=== PATIENT | female | born 1965 | race Caucasian/White ===

== ENCOUNTER 2020-12-23 07:27 | Day surgery (SDC) | payer OTHER ==
[~2020-12-23 07:27] MED LIST: BUFFERED LIDOCAINE 10 ML SYRINGE ONE
[2020-12-23] MEDS ORDERED: ceFAZolin 2 GM/50 ML 2 GM/50 ML BAG IV ONE (07:32)
[2020-12-23] MEDS ORDERED: LACTATED RINGERS 1,000 ML IV ONE ×2 (08:17→13:21)
[2020-12-23 08:19] LABS: HCG UR QUAL NEGATIVE
--- NOTE | 2020-12-23 09:20 | ANESTHESIA ---
Pre-Anesthesia VS, & Labs - Diagnosis R breast CA - Procedure R breast lumpectomy, sentinel node biopsy Vital Signs: Temp Pulse Resp BP Pulse Ox 36.5 C 95 16 148/88 H 97 12/23/20 07:55 12/23/20 07:55 12/23/20 07:55 12/23/20 07:55 12/23/20 07:55 Height: 5 ft 6 in Weight (kg): 76 kg Body Mass Index: 27.0 BMI Classification: Overweight - Is Patient ?: No - Lab Results Lab results reviewed: Yes Home Medications and Allergies Home Medications: Ambulatory Orders No Known Home Medications 12/17/20 No Known Home Medications 12/17/20 Allergies/Adverse Reactions: Allergies Allergy/AdvReac Type Severity Reaction Status Date / Time Sulfa (Sulfonamide AdvReac Unknown Verified 12/17/20 14:49 Antibiotics) Anes History & Medical History - Anesthetic History Anesthesia Complications: reports: No previous complications Family history of Anesthesia Complications: Denies Family history of Malignant Hyperthermia: Denies - Medical History Cardiovascular: reports: High cholesterol Pulmonary: reports: None Gastrointestinal: reports: GERD Urinary: reports: None Musculoskeletal: reports: None Endocrine/Autoimmune: reports: None Skin: reports: None History of Cancer?: Yes (R breast) - Surgical History General: reports: Other Exam General: Alert, Oriented x3, Cooperative Dental: WNL Mouth Openin Fingerbreadth Neck Mobility: Normal Mallampati classification: II Thyromental Distance: less than 4 cm Respiratory: Lungs clear, Normal breath sounds, No respiratory distress, No accessory muscle use Cardiovascular: Regular rate Neurological: Normal speech Mental/Cognitive Status: Alert/Oriented X3, Normal for patient Cognitive Status: Within normal limits Plan Anesthesia Type: General Consent for Procedure(s) Verified and Reviewed: Yes Code Status: Attempt Resuscitation ASA classification: 3-Severe systemic disease Is this case an emergency?: No
[2020-12-23] MEDS ORDERED: PROPOFOL 200 MG/20 ML VIAL IVP ONE (09:22)
[2020-12-23] MEDS ORDERED: ONDANSETRON 4 MG/2 ML VIAL ONE (09:22)
[2020-12-23] MEDS ORDERED: KETOROLAC 30 MG/ML VIAL ONE (09:22)
[2020-12-23] MEDS ORDERED: LIDOCAINE-MPF 2% 5 ML VIAL ONE (09:22)
[2020-12-23] MEDS ORDERED: DEXAMETHASONE 4 MG/ML VIAL ONE (09:22)
[2020-12-23] MEDS ORDERED: METOCLOPRAMIDE 10 MG/2 ML VIAL IVP PRN (10:52)
[2020-12-23] MEDS ORDERED: fentaNYL 100 MCG/2 ML VIAL IVP PRN (10:52)
[2020-12-23] MEDS ORDERED: HYDROmorphone 0.5 MG/0.5 ML SYRINGE IVP PRN (10:52)
[2020-12-23] MEDS ORDERED: ONDANSETRON 4 MG/2 ML VIAL IVP PRN ×2 (10:52→13:18)
[2020-12-23] MEDS ORDERED: ePHEDrine 50 MG/ML VIAL IVP PRN (10:52)
[2020-12-23] MEDS ORDERED: ATROPINE ABBOJECT 1 MG/10 ML SYRINGE IVP PRN (10:52)
[2020-12-23] MEDS ORDERED: NALOXONE 0.4 MG/ML VIAL IVP PRN (10:52)
[2020-12-23] MEDS ORDERED: MORPHINE 2 MG/ML CARPUJECT IVP PRN (10:52)
[2020-12-23] MEDS ORDERED: LACTATED RINGERS 1,000 ML IV SCH (11:00)
[2020-12-23] MEDS ORDERED: MIDAZOLAM 2 MG/2 ML VIAL ONE (11:11)
--- NOTE | 2020-12-23 11:17 | Nuclear Medicine Report ---
PROCEDURE: Lymph Node Scintigraphy INDICATIONS: RIGHT BREAST CA RADIOPHARMACEUTICAL: 0.5-1.0 mCi Millipore filtered Tc-99m sulfur colloid. TECHNIQUE: The area around the nipple was prepped and draped in a sterile fashion. Tc-99m sulfur colloid was in jected intra-dermally in the outer edge of the areola in the right breast. Images were obtained subs equently. A body contour outline was obtained with surface marker placed over the lowest lymph node and a chain of 3 known sequentially appearing from lower to higher at the right axilla.. FINDINGS: There is/are 3 lymph node(s) in the ipsilateral axilla, the lowest of which is marked on the skin and the images for referring physician. IMPRESSION: Administration of radiotracer into the right breast periareolar region for intra-operati ve sentinel lymph node localization, identifying the 3 sequential positive sentinel lymph nodes, the lowest of which was marked professionally on the skin surface.. Reviewed by: John Brothers MD on 12/23/2020 11:16 AM PDT Approved by: John Brothers MD on 12/23/2020 11:16 AM PDT Station ID: [id number]
[2020-12-23] MEDS ORDERED: BUPIVACAINE 0.5% PF 30 ML VIAL SUBQ ONE ×2 (12:05)
[2020-12-23] MEDS ORDERED: LIDOCAINE 1%-EPI 1:100000 30 ML MDV SUBQ ONE (12:05)
[2020-12-23] MEDS ORDERED: GLYCOPYRROLATE 1 MG/5 ML VIAL ONE (12:22)
[2020-12-23] MEDS ORDERED: BUFFERED LIDOCAINE 10 ML SYRINGE IU ONE (13:07)
--- NOTE | 2020-12-23 13:16 | OPERATIVE REPORT ---
Operative Report - General Procedure Date: 12/23/20 Planned Procedure: Right breast lumpectomy and sentinel node biopsy Pre-Op Diagnosis: Biopsy-proven right breast cancer Procedure Performed: Right breast lumpectomy and sentinel node biopsy following needle localization and mapping Post Op Diagnosis: Biopsy-proven right breast cancer - Procedure Note Primary Surgeon: Brittny Anesthesia Provider: MATHIEU Adams Anesthesia Technique: General LMA, Local Pathology: 1. [place] node #1 to pathology 2. [place] node #2 to pathology 3. Additional axillary tissue 4. [place] node #3 to pathology 5. Right breast mass marked with a short stitch superior long stitch lateral and double stitch anterior 6. Right breast additional anterior and superior margin marked with a short stitch superior, long stitch lateral, and double stitch anterior Estimated Blood Loss (mL): 50 Indications: Biopsy-proven right breast cancer Findings: Target lesion and marker well centered within the specimen Complications: None apparent - Other Other Information/Narrative: After obtaining informed consent, the patient was brought to the operating room and placed in the supine position on the operating table. Following successful induction of general endotracheal anesthesia, appropriate padding of all bony prominences, and placement of appropriate monitors, the right breast was prepped and draped in the standard surgical fashion. A timeout was held per scope protocol. All elements of the surgical safety checklist were followed before, during, and after the procedure. We began the procedure with a sentinel node dissection. The site of the brightest node had been marked in radiology with 2 skin marker axis. The neoprobe was used to identify the site of greatest uptake at level 2 in the patient's axilla. An incision was created over this area of uptake and carried through the skin and subcutaneous tissue to enter the axillary node packet. The first sentinel node was identified. It was noted to be slightly enlarged but otherwise grossly normal in appearance. It was carefully dissected free from surrounding stop structures sharply, all lymphatics and vasculature were addressed with clips prior to division. The node was liberated into the field. 10-second counts are recorded. Survey of the axilla revealed a second target immediately posterior to the first. This node was quite small and normal in appearance. It was carefully dissected free from surrounding stop structures sharply, all lymphatics and vasculature were addressed with clips prior to division. The node was liberated into the field. 10-second counts are recorded. A third sentinel node was identified superior to the second. 10- second counts were recorded. All afferrent and efferent lymphatics and vasculature were addressed prior to division. The node was liberated into the field and passed from the table. 10-second counts were recorded. Background in the axilla was checked and found to be 6-14. Background in the room was 0. The axillary incision was then closed in 2 layers with Vicryl and Monocryl sutures. We turned our attention to the right breast mass. The area over the mass and in the periareolar region was infiltrated with a mixture of local anesthetics to create to field block. A periareolar incision was then created and the mass and associated wire carefully dissected sharply from the subcutaneous tissue anteriorly and from the retromammary bursa posteriorly. The mass was removed in a single piece in a medial to lateral fashion. It was marked with a short stitch superior, long stitch lateral, and double stitch anterior. It was finally liberated sharply and delivered into the field. The wound was checked for hemostasis. It was irrigated again with warm water. The specimen xray was examined and found to contain the target clip and lesion well centered. The wound was then closed in 2 layers with Vicryl and Monocryl sutures. All sponge, needle, and instrument counts were correct at the conclusion of the case. The patient was let awakened anesthesia without difficulty and taken to the postanesthesia care unit in good condition.
[2020-12-23] MEDS ORDERED: IBUPROFEN 600 MG TABLET PO PRN (13:18)
[2020-12-23] MEDS ORDERED: oxyCODONE 5 MG TABLET PO PRN (13:18)
[2020-12-23] MEDS ORDERED: ACETAMINOPHEN 325 MG TABLET PO PRN (13:18)
[2020-12-23 14:08] VITALS: BP 133/82
--- NOTE | 2020-12-23 17:30 | ANESTHESIA POST OP EVALUATION ---
Anesthesia Post Eval - Post Anesthesia Eval Vitals: Last Vital Signs Temp 36.6 C 12/23/20 14:07 Pulse 75 12/23/20 14:07 Resp 14 12/23/20 14:07 BP 133/82 H 12/23/20 14:07 Pulse Ox 100 12/23/20 14:07 CV Function Including HR & BP: Stable Pain Control: Satisfactory Nausea & Vomiting: Negative Mental Status: Baseline Respiratory Status: Airway Patent Hydration Status: Satisfactory Anesthesia Complications: None
--- NOTE | 2020-12-24 08:05 | Ultrasound Report ---
ULTRASOUND GUIDED WIRE LOCALIZATION RIGHT BREAST WITH POST MAMMOGRAPHIC IMAGIN12/23/2020 CLINICAL: Right breast mass. Wire placement for right breast lumpectomy. Correlation is made to exams dated: 11/12/2020 breast MRI, 10/11/2020 ultrasound biopsy, 10/11/2020 susu mogram, 09/17/2020 ultrasound, 09/17/2020 mammogram, and 11/10/2017 [facility]. A wire localization using ultrasound guidance was performed for the concerning 2.2 cm x 2.1 cm x 1.6 cm circumscribed oval solid mass located in the right breast at 12 o'clock anterior depth. This was described on the previous mammography and ultrasound reports. The skin was prepped in the usual [facility]. Local anesthetic was administered to the access site. The localization was approached from the lateral aspect. A J-hook wire was inserted into the targeted area through an introducer device under ultrasound guidance. A sterile dressing was applied to the access site. Post placement mammographi c imaging demonstrates the tip rests in the targeted area. IMPRESSION: WIRE LOCALIZATION Wire localization for the 2.2 cm x 2.1 cm x 1.6 cm solid mass in the right breast at 12 o'clock anter ior depth was successful. A specimen radiograph is recommended. This exam was interpreted at Station ID: [id number]. John Brothers M.D. [facility]/:12/23/2020 10:08:48 BI-RADS CATEGORY: () - Unspecified - other recall n/a LATERALITY: (B)
--- NOTE | 2020-12-24 08:05 | Mammography Report ---
SPECIMEN RIGHT BREAST: 12/23/2020 CLINICAL: Right breast specimen. Correlation is made to exams dated: 12/23/2020 mammogram, 12/23/2020 localization - [facility], 11/12/2020 breast MRI, 10/11/2020 ultrasound biopsy, 10/11/2020 mammogram, and 09/17/2020 [facility]. A specimen was imaged for the solid mass located in the right breast at 12 o'clock anterior depth. IMPRESSION: SPECIMEN The imaged specimen includes the lesion, a biopsy clip, and a location device. This exam was interpreted at Station ID: [id number]. John Brothers M.D. [facility]/:12/23/2020 17:01:06 BI-RADS CATEGORY: () - Unspecified - other recall n/a LATERALITY: (B)
--- NOTE | 2020-12-24 08:05 | Mammography Report ---
UNILATERAL RIGHT DIGITAL DIAGNOSTIC MAMMOGRAM 3D/2D: 12/23/2020 CLINICAL: Post wire placement. Comparison is made to exams dated: 11/12/2020 breast MRI, 10/11/2020 ultrasound biopsy, 10/11/2020 mamm ogram, 09/17/2020 ultrasound, 09/17/2020 mammogram, and 11/10/2017 ultrasound - [facility]. The ti ssue of right breast is heterogeneously dense. This may lower the sensitivity of mammography. There is a mass in the right breast at 12 o'clock anterior depth. This is not significantly changed and correlates with prior ultrasound findings. There is a biopsy clip associated with the mass. No other significant masses or calcifications are seen in the breast. The wire localization performed earlier today has tip of the wire within 1 cm of the Vision marker placed previously. IMPRESSION: The mass in the right breast is a known biopsy positive for malignancy. The wire localization bring s the wire tip within 1cm of the biopsy localization Vision marker on both views. This exam was interpreted at Station ID: [id number]. NOTE: For mammograms, a report in lay terms will be sent to the patient. Approximately 15% of breast malignancies will not be visualized mammographically. In the management of a palpable breast mass, a negative mammogram must not discourage biopsy of a clinically suspicious lesion. Electronically Signed By: John Brothers M.D. [facility]/:12/23/2020 12:06:17 ACR BI-RADS Category n/a PARENCHYMAL PATTERN: (D) - The breast(s) demonstrate(s) heterogeneously dense fibroglandular parenchy ma. BI-RADS CATEGORY: () - Unspecified - other recall n/a LATERALITY: (B)
== END 2020-12-23 07:28 | disposition home or self-care (01) ==
LOC: DI 07:27
PROVIDERS: ATTEND Surgery
PROC: 07B50ZX Excision of Right Axillary Lymphatic, Open Approach, Diagnostic (ICD-10-PCS; 2020-12-23)
PROC: 0HBT0ZZ Excision of Right Breast, Open Approach (ICD-10-PCS; principal; 2020-12-23 10:00)
DX: C50.811 Malignant neoplasm of overlapping sites of right female breast (principal); Z17.0 Estrogen receptor positive status [ER+]; E78.5 Hyperlipidemia, unspecified; K21.9 Gastro-esophageal reflux disease without esophagitis
CPT/HCPCS: 19285; 78195; 81025